=== PATIENT | male | born 1990 ===

== ENCOUNTER 2019-04-21 21:53 | Emergency (ER) | payer OTHER ==
[2019-04-21] MEDS ORDERED: Ketorolac 60 MG/2 ML SDV IM ONE (22:31)
--- NOTE | 2019-04-21 23:01 | EDM.PDOC ---
ED HPI GENERAL MEDICAL PROBLEM - General Chief Complaint: Abdominal Pain Stated Complaint: ABDOMINAL PAIN Time Seen by Provider: 04/21/19 22:40 Source of Information: Reports: Patient - History of Present Illness INITIAL COMMENTS - FREE TEXT/NARRATIVE: The patient is to the ER secondary to right lower quadrant abdominal pain. The patient states that he was shoveling snow and about 1 to 2 hours later he started having some burning abdominal discomfort in his right lower quadrant region. No fevers or chills, no nausea or vomiting, no flank pain, no testicular pain, no testicular swelling, no other acute complaints. The patient 's pain is also sharp and stabbing in came on rather suddenly. There is a very small area that it is painful to the touch that is about the size of a dollar. It is worse with certain movements and trying to sit up. Abdomen Pain Score (Numeric/FACES): 5 - Related Data Allergies Allergy/AdvReac Type Severity Reaction Status Date / Time Penicillins Allergy Hives Verified 04/21/19 22:05 Home Meds: Home Meds Fluticasone/Vilanterol [Breo Ellipta 200-25 MCG Inhalation Kit] 1 each IH ONETIME 04/21/19 [History] Past Medical History HEENT History: Reports: None Cardiovascular History: Reports: None Respiratory History: Reports: Other (See Below) Other Respiratory History: Seasonal Allergy Gastrointestinal History: Reports: None Genitourinary History: Reports: None Musculoskeletal History: Reports: None Neurological History: Reports: None Psychiatric History: Reports: None Endocrine/Metabolic History: Reports: None Insulin Pump Model and Egg Smeller: None Hematologic History: Reports: None Immunologic History: Reports: None Oncologic (Cancer) History: Reports: None Dermatologic History: Reports: None - Infectious Disease History Infectious Disease History: Reports: None - Past Surgical History Head Surgeries/Procedures: Reports: None HEENT Surgical History: Reports: Tonsillectomy Social & Family History - Family History Family Medical History: Noncontributory - Tobacco Use Smoking Status *Q: Never Smoker - Caffeine Use Caffeine Use: Reports: Coffee - Recreational Drug Use Recreational Drug Use: No ED ROS GENERAL - Review of Systems Review Of Systems: See Below Free Text/Narrative/Comment: Positive for right lower quadrant abdominal pain, negative for fevers, negative for chills, negative for dysuria, negative for flank pain, all other Positives and pertinent negatives as per HPI. All other pertinent systems were reviewed and are negative ED EXAM, GI/ABD - Physical Exam Exam: See Below Text/Narrative:: Constitutional: Nontoxic, morbidly obese, no acute distress, Non-toxic appearance HEENT.: Normocephalic, PERRL, EOMI, External ears are atraumatic, nares are patent without epistaxis Neck: Normal range of motion, Trachea Midline, No stridor Respiratory.: No respiratory distress, No tachypnea, Lungs Clear to Auscultation bilaterally without wheezes, rales, or rhonchi Cardiovascular.: Regular rate and Rhythm without murmurs, rubs, or gallops, good peripheral perfusion GI: Abdomen is obese, there is one very localized area of point tenderness in the right lower quadrant that is more painful with palpation, and feels better by letting go, no rebound, no guarding, heel tap is negative, pain is worse by sitting up, no hernia palpated, no inguinal tenderness Genital Urinary: Hernias Musculoskeletal: Good range of motion. All 4 extremities present and atraumatic , no edema Back: Full Range of Motion, no flank pain Skin: Warm, Dry, Color is ethnicity appropriate, No acute rash. Lymphatic: No lymphadenopathy noted Neurological: Alert, Awake and oriented x 3, No focal deficits noted appreciate , GCS 15 Psych: Affect, Judgement, mood normal Course - Vital Signs Text/Narrative:: Urinalysis overall is unremarkable except for some trace blood. I talked to the patient in detail that I believe he is low risk at this time for appendicitis and he is comfortable with no CT scan. Even if the patient does have ureterolithiasis given that he has no signs of infection in his urine he is still comfortable with no CT scan of the abdomen and pelvis. He will be treated symptomatically at home for now, and return to the ER if he develops concerning symptomology such as uncontrolled pain, fevers and pain or any other concerns. Last Recorded V/S: Last Vital Signs Temp 37.2 C 04/21/19 22:05 Pulse 114 H 04/21/19 22:05 Resp 18 04/21/19 22:05 BP 145/70 H 04/21/19 22:05 Pulse Ox 97 04/21/19 22:05 - Orders/Labs/Meds Labs: Laboratory Tests 04/21/19 Range/Units 22:05 Urine Color YELLOW Urine Appearance CLEAR Urine pH 6.5 (5.0-8.0) Ur Specific [place] >= 1.030 (1.001-1.035) Urine Protein 100 H (NEGATIVE) mg/dL Urine Glucose (UA) NEGATIVE (NEGATIVE) mg/dL Urine Ketones NEGATIVE (NEGATIVE) mg/dL Urine Occult Blood TRACE-INTACT H (NEGATIVE) Urine Nitrite NEGATIVE (NEGATIVE) Urine Bilirubin NEGATIVE (NEGATIVE) Urine Urobilinogen 1.0 (<2.0) EU/dL Ur Leukocyte Esterase NEGATIVE (NEGATIVE) Urine RBC 1-2 (0-2/HPF) Urine WBC 0-1 (0-5/HPF) Ur Epithelial Cells RARE (NONE-FEW) Urine Bacteria RARE (NEGATIVE) Meds: Medications Discontinued Medications Generic Name Dose Route Start Last Admin Trade Name Bob PRN Reason Stop Dose Admin Ketorolac Tromethamine 60 mg 04/21/19 22:31 04/21/19 22:48 Toradol IM 04/21/19 22:32 60 mg ONETIME ONE Administration Departure - Departure Time of Disposition: 23:05 Disposition: Home, Self-Care 01 Condition: Good Clinical Impression: Abdominal pain - Discharge Information Referrals: Ollie Hoang MD [Primary Care Provider] - Additional Instructions: Drink lots of water -enough to keep your urine clear or very light yellow Take ibuprofen 800 mg and Tylenol 1000 mg together every 6 hours as needed for pain Return to the ER if you are developing uncontrolled pain, fevers and abdominal pain or any other concerns Sepsis Event Note - Evaluation Sepsis Screening Result: No Definite Risk - Focused Exam Vital Signs: Vital Signs Temp Pulse Resp BP Pulse Ox 04/21/19 22:05 37.2 C 114 H 18 145/70 H 97 Date Exam was Performed: 04/21/19 Time Exam was Performed: 22:55
== END 2019-04-21 23:16 | disposition home or self-care (01) ==
LOC: MW.ED 21:53
DX: R10.31 Right lower quadrant pain (principal); Z88.0 Allergy status to penicillin
CPT/HCPCS: 81001; 96372; 99284; J1885; 99283